=== PATIENT | female | born 1990 | race Two or more races ===

== ENCOUNTER 2018-12-29 13:17 | Emergency (ER) | payer MEDICARE, OTHER ==
[2018-12-29 14:16] VITALS: BP 134/97
[2018-12-29] MEDS ORDERED: CLON-333 PO (14:20)
[2018-12-29] MEDS ORDERED: DIPHTH/TETANUS/ACEL. PERTUSSIS IM ONLY ONE (14:30)
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
== END 2018-12-29 15:45 | disposition home or self-care (01) ==
LOC: ER 13:40
DX: S06.0X0A Concussion without loss of consciousness, initial encounter (principal); S10.0XXA Contusion of throat, initial encounter; S01.81XA Laceration without foreign body of other part of head, initial encounter; S00.83XA Contusion of other part of head, initial encounter; Y04.2XXA Assault by strike against or bumped into by another person, initial encounter
CPT/HCPCS: 70450; 81025; 90471; 90715; 99284

== ENCOUNTER 2019-01-03 11:42 | Emergency (ER) | payer MEDICARE, OTHER ==
[~2019-01-03 11:42] MED LIST: CLON-333 PO
[2019-01-03 11:45] VITALS: BP 139/101
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
[2019-01-03] MEDS ORDERED: LORazepam 1 MG TAB PO ONE (12:10)
[2019-01-03 12:35] LABS: PLATELET COUNT, AUTOMATED 421 K/uL (150-450)
[2019-01-03] MEDS ORDERED: implanon (19:35)
[2019-01-03] MEDS ORDERED: ETON68IM SQ (19:35)
== END 2019-01-03 14:09 ==
LOC: ER 12:00
DX: F32.9 Major depressive disorder, single episode, unspecified (principal); Z86.718 Personal history of other venous thrombosis and embolism; Z86.711 Personal history of pulmonary embolism
CPT/HCPCS: 80305; 81001; 81025; 83735; 84443; 85025; 99284; A9270; G0480; 80320; 80329; 82040; 82247; 82310; 82374; 82435; 82565; 82947; 84075; 84132; 84155; 84295; 84450; 84460; 84520

== ENCOUNTER 2019-01-03 13:35 | Inpatient (IN) | payer MEDICARE, OTHER ==
[~2019-01-03] VITALS: Ht 160 cm; Wt 96.2 kg
[2019-01-03 14:15] VITALS: BP 140/80
[2019-01-03] MEDS ORDERED: ACETAMINOPHEN 325 MG TAB PO PRN (14:30)
[2019-01-03] MEDS ORDERED: WATER FOR INJECTION 10 ML VIAL IM ONLY PRN (14:30)
[2019-01-03] MEDS ORDERED: OLANZapine 10 MG VIAL IM ONLY PRN (14:30)
[2019-01-03] MEDS ORDERED: LORazepam 2 MG/ML VIAL IM PRN (14:30)
[2019-01-03] MEDS ORDERED: MAG HYD/AL HYD/SIMETH 30ML UDC PO PRN (14:30)
[2019-01-03] MEDS ORDERED: diphenhydrAMINE 50 MG/ML VIAL IM PRN (14:30)
[2019-01-03] MEDS ORDERED: OLANZapine 5 MG TAB PO PRN (14:30)
[2019-01-03] MEDS ORDERED: LORazepam 1 MG TAB PO PRN (14:35)
[2019-01-03] MEDS ORDERED: NICOTINE CARTRIDGE 1 EA PO PRN (14:35)
[2019-01-03] MEDS ORDERED: NICOTINE INH SYSTEM 10 MG/INH INH PRN (14:35)
[2019-01-03] MEDS ORDERED: diphenhydrAMINE 25 MG CAP PO PRN (18:35)
--- NOTE | 2019-01-03 18:57 | RADIOLOGY IMAGING REPORT ---
FACILITY: [facility] PATIENT NAME: Leticia Hale : 1990 MR: [id number] V: [id number] EXAM DATE: ORDERING PHYSICIAN: DEON CARLTON TECHNOLOGIST: [place] [facility] [place] Patient: Leticia Hale : 1990 Visit/Account:[id number] Date of Sevice: 01/03/2019 EXAMINATION: Right wrist 3 views HISTORY: Injury. COMPARISON: None. FINDINGS: No evidence of acute fracture or dislocation about the right wrist. Normal alignment. Joint spaces are preserved. Soft tissues are unremarkable. IMPRESSION: Negative right wrist. Report Dictated By: Surya Joy MD at 01/03/2019 6:48 PM Report E-Signed By: Surya Joy MD at 01/03/2019 6:53 PM WSN:[id number]
[2019-01-03] MEDS ORDERED: ETON68IM SQ (19:35)
[2019-01-03] MEDS ORDERED: implanon (19:35)
[2019-01-04 02:23] VITALS: BP 131/88
[2019-01-04] MEDS ORDERED: LORazepam 1 MG TAB PO ONE ×2 (02:50→20:45)
[2019-01-04] MEDS: MULTIVITAMINS PO SCH ×2 (08:39→09:00)
[2019-01-04] MEDS ORDERED: DIAZEPAM 10 MG TAB PO ONE (13:10)
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
[2019-01-04] MEDS: PANTOPRAZOLE SOD 40 MG TABEC PO SCH (17:57)
[2019-01-04] MEDS ORDERED: ARIPiprazole 2 MG TAB PO SCH (21:00)
[2019-01-04 22:39] VITALS: BP 131/88
[2019-01-05 05:01] VITALS: BP 130/86
[2019-01-05] MEDS: MULTIVITAMINS PO SCH (08:02)
[2019-01-05] MEDS: PANTOPRAZOLE SOD 40 MG TABEC PO SCH (08:02)
[2019-01-05 10:02] VITALS: BP 150/107
--- NOTE | 2019-01-05 10:19 | BHS Progress Note ---
S - Subjective Progress Notes Subjective "I'm super pissed off about John being locked up and being stuck in [place]. I hope everyone dies off on the face of the planet. Can I tell them I just lied? The longer I'm in [place] the more of a problem I'm going to be here. I should have gone to [place] to get the meds I need. When I say I need them, I mean I need them." States didn't sleep well, "I got a room mate." Anger "15.87 out of a 10" Depression "I still want to ." Anxiety "I'm worried I'm doing to be stuck here." Suicidal ideation, "I mean I don't have a plan, It's easier to than to get the meds I need." Suicidal Ideation: Ongoing Homicidal Ideation: None [facility] - Objective Physical Exam Vital Signs Allergies Coded Allergies NSAIDS (Non-Steroidal Anti-Inflamma (Verified Allergy, Unknown, 01/03/19) divalproex sodium (Verified Allergy, Unknown, 01/03/19) galantamine (Verified Allergy, Unknown, 01/03/19) tramadol (Verified Allergy, Unknown, 01/03/19) Medications (Trade) Dose Ordered Sig/Alfredo Route PRN Reason Start Time Stop Time Status Last Admin Dose Admin Aripiprazole (Abilify 2 Mg Tab (Or Equiv)) 2 mg QHS PO 01/04/19 21:00 02/03/19 20:59 01/04/19 21:08 Diazepam (Valium(*) 10 Mg Tab (Or Equiv)) 10 mg ONCE ONCE PO 01/04/19 13:10 01/04/19 13:15 DC 01/04/19 13:10 Lorazepam (Ativan(*) 1 Mg Tab (Or Equiv)) 1 mg ONCE ONCE PO 01/04/19 20:45 01/04/19 21:25 DC 01/04/19 21:33 Miscellaneous Information (Nicotrol Cartridge) 1 each PRN PRN PO NICOTINE REPLACEMENT 01/03/19 14:35 02/02/19 14:34 01/04/19 19:55 Multivitamins (Thera-M Enhanced Tab (Or Equiv)) 1 each QDAY PO 01/04/19 09:00 02/03/19 08:59 01/05/19 08:02 Nicotine (Nicotrol Inhaler 10 Mg/Inh (Or Equiv)) 10 mg Q2H PRN INH NICOTINE REPLACEMENT 01/03/19 14:35 02/02/19 14:34 01/04/19 19:55 Pantoprazole Sodium (Protonix (*) (Or Equiv)) 40 mg QDAY PO 01/04/19 17:45 02/03/19 17:44 01/05/19 08:02 Deferred Current Medications Medications (Trade) Dose Ordered Sig/Alfredo Route PRN Reason Start Time Stop Time Status Last Admin Dose Admin Acetaminophen (Tylenol(*)325 Mg Tab (Or Equiv)) 650 mg Q4H PRN PO HEADACHE 01/03/19 14:30 02/02/19 14:29 Al Hydrox/Mg Hydrox/Simethicone (Maalox(*) 30 ml Udcup (Or Equiv)) 30 ml Q4H PRN PO DYSPEPSIA 01/03/19 14:30 02/02/19 14:29 Multivitamins (Thera-M Enhanced Tab (Or Equiv)) 1 each QDAY PO 01/04/19 09:00 02/03/19 08:59 01/05/19 08:02 Olanzapine (zyPREXA(*) (OR EQUIV)) 10 mg Q6H PRN IM ONLY SEVERE AGITATION 01/03/19 14:30 02/02/19 14:29 Diphenhydramine HCl (Benadryl(*) 50 Mg/ml Vial (Or Equiv)) 50 mg Q6H PRN IM SEVERE AGITATION 01/03/19 14:30 02/02/19 14:29 Olanzapine (zyPREXA (OR EQUIV)) 10 mg Q6H PRN PO SEVERE AGITATION 01/03/19 14:30 02/02/19 14:29 Sterile Water (Sterile Water Injection(*) 10 ml Vial) 2.1 ml Q6H PRN IM ONLY PRN 01/03/19 14:30 02/02/19 14:29 Lorazepam (Ativan(*) 2 Mg/ ml Vial (Or Equiv)) 2 mg Q6H PRN IM SEVERE AGITATION 01/03/19 14:30 01/17/19 14:29 Lorazepam (Ativan(*) 1 Mg Tab (Or Equiv)) 2 mg Q6H PRN PO SEVERE AGITATION 01/03/19 14:35 01/17/19 14:34 Nicotine (Nicotrol Inhaler 10 Mg/Inh (Or Equiv)) 10 mg Q2H PRN INH NICOTINE REPLACEMENT 01/03/19 14:35 02/02/19 14:34 01/04/19 19:55 Miscellaneous Information (Nicotrol Cartridge) 1 each PRN PRN PO NICOTINE REPLACEMENT 01/03/19 14:35 02/02/19 14:34 01/04/19 19:55 Diphenhydramine HCl (Benadryl(*) 25 Mg Cap (Or Equiv)) 25 mg QID PRN PO ANXIETY/INSOMNIA 01/03/19 18:35 02/02/19 18:34 Lorazepam (Ativan(*) 1 Mg Tab (Or Equiv)) 1 mg ONCE ONCE PO 01/04/19 02:50 01/04/19 02:55 DC 01/04/19 02:59 Aripiprazole (Abilify 2 Mg Tab (Or Equiv)) 2 mg QHS PO 01/04/19 21:00 02/03/19 20:59 01/04/19 21:08 Diazepam (Valium(*) 10 Mg Tab (Or Equiv)) 10 mg ONCE ONCE PO 01/04/19 13:10 01/04/19 13:15 DC 01/04/19 13:10 Pantoprazole Sodium (Protonix (*) (Or Equiv)) 40 mg QDAY PO 01/04/19 17:45 02/03/19 17:44 01/05/19 08:02 Lorazepam (Ativan(*) 1 Mg Tab (Or Equiv)) 1 mg ONCE ONCE PO 01/04/19 20:45 01/04/19 21:25 DC 01/04/19 21:33 Muscle Strength and Tone: WNL Gait and Station: Steady [facility] Medications Reviewed: Side Effects, Benefits of Medication, Risks Allergies Reviewed: Yes Mental Status Exam General Appearance: Casual, Tearful (tearful at times, angry and irritable throughout interview) Speech: Clear, Spontaneous, Normal Volume, Rambling Mood: Other (labile) Affect: Tearful, Anxious, Agitated Thought Process: Organized, Flight of Ideas (some flight of ideas) Thought Content: Suicidal Ideation; No Homicidal Ideation, No Auditory Halllucinations, No Visual Hallucinations, No Thought Broadcasting, No Ideas of Reference, No Obsessions, No Compulsions Sensorium: Clear (Labile) Cognition: Alert & Oriented-Person, Alert & Oriented-Place, Alert & Oriented- Time, Mhhri-Dauzwikz-Bswbursgn Memory: Immediate, Recent, Remote Intelligence: Average Insight Judgment: Poor Imaging Medications (Trade) Dose Ordered Sig/Alfredo Route PRN Reason Start Time Stop Time Status Last Admin Dose Admin Aripiprazole (Abilify 2 Mg Tab (Or Equiv)) 2 mg QHS PO 01/04/19 21:00 02/03/19 20:59 01/04/19 21:08 Diazepam (Valium(*) 10 Mg Tab (Or Equiv)) 10 mg ONCE ONCE PO 01/04/19 13:10 01/04/19 13:15 DC 01/04/19 13:10 Lorazepam (Ativan(*) 1 Mg Tab (Or Equiv)) 1 mg ONCE ONCE PO 01/04/19 20:45 01/04/19 21:25 DC 01/04/19 21:33 Miscellaneous Information (Nicotrol Cartridge) 1 each PRN PRN PO NICOTINE REPLACEMENT 01/03/19 14:35 02/02/19 14:34 01/04/19 19:55 Multivitamins (Thera-M Enhanced Tab (Or Equiv)) 1 each QDAY PO 01/04/19 09:00 02/03/19 08:59 01/05/19 08:02 Nicotine (Nicotrol Inhaler 10 Mg/Inh (Or Equiv)) 10 mg Q2H PRN INH NICOTINE REPLACEMENT 01/03/19 14:35 02/02/19 14:34 01/04/19 19:55 Pantoprazole Sodium (Protonix (*) (Or Equiv)) 40 mg QDAY PO 01/04/19 17:45 02/03/19 17:44 01/05/19 08:[address] [facility] Assessment and Plan [id number] Encounter Date: Jan 05, 2019 [id number] Encounter Time: 10:[address] [facility] Plan: Admit to Unit, Necessary Precautions, Individual/Group Therapy, Admin/Titrate Meds, Educate Patient Multpiple Antipsychotics Used: No Problems: (1) Unspecified mood [affective] disorder (2) Borderline personality disorder Condition Maintain precautions Encourage mood regulation tasks Increase Abilify to 5mg po every, Lorazepam 1mg po bid Treatment team 01/05/19 STEFANIE MORTON NP Jan 05, 2019 10:19
[2019-01-05] MEDS: LORazepam 1 MG TAB PO SCH ×2 (10:52→17:15)
[2019-01-05] MEDS: ARIPiprazole 10 MG TAB PO ONE ×2 (20:55→21:27)
--- NOTE | 2019-01-05 21:10 | NUR ---
pt was given her 2100 medication, Abilify 5mg. Pt refused med. States it will keep her awake since she doesnt have anything else to help her sleep.
[2019-01-06] MEDS: PANTOPRAZOLE SOD 40 MG TABEC PO SCH (08:24)
[2019-01-06] MEDS: LORazepam 1 MG TAB PO SCH ×3 (08:24→20:23)
[2019-01-06] MEDS: MULTIVITAMINS PO SCH (08:25)
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
[2019-01-06] MEDS ORDERED: LORazepam 1 MG TAB PO ONE (17:00)
[2019-01-06] MEDS ORDERED: RIVAROXABAN 10 MG TAB PO SCH (17:30)
[2019-01-06] MEDS ORDERED: LORazepam 1 MG TAB ONE (20:13)
--- NOTE | 2019-01-06 20:39 | NUR ---
Pt dropped previous Ativan on the floor. Did override to replace
[2019-01-06] MEDS ORDERED: ARIPiprazole 10 MG TAB PO SCH (21:00)
[2019-01-06 21:27] VITALS: BP 112/72
[2019-01-07] MEDS: PANTOPRAZOLE SOD 40 MG TABEC PO SCH (08:24)
[2019-01-07] MEDS: MULTIVITAMINS PO SCH (08:24)
[2019-01-07] MEDS: LORazepam 1 MG TAB PO SCH (08:24)
[2019-01-07] MEDS ORDERED: CLON0.5T66 PO ×2 (14:03→14:08)
[2019-01-07] MEDS ORDERED: RIVA10TA PO (14:05)
[2019-01-07] MEDS ORDERED: ABILIF5PT PO (14:09)
[2019-01-07] MEDS ORDERED: SERT-1 PO (14:10)
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
== END 2019-01-07 14:24 | disposition home or self-care (01) | DRG 883 ==
LOC: BHS 13:35
PROVIDERS: ADMIT Psychiatry & Neurology Psychiatry; ATTEND Psychiatry & Neurology Psychiatry
DX: F60.3 Borderline personality disorder (principal); R45.851 Suicidal ideations; F13.20 Sedative, hypnotic or anxiolytic dependence, uncomplicated; D68.9 Coagulation defect, unspecified; E66.9 Obesity, unspecified; F17.210 Nicotine dependence, cigarettes, uncomplicated; F43.22 Adjustment disorder with anxiety; Z62.810 Personal history of physical and sexual abuse in childhood; Z68.37 Body mass index [BMI] 37.0-37.9, adult; Z86.718 Personal history of other venous thrombosis and embolism; Z86.711 Personal history of pulmonary embolism; Z91.410 Personal history of adult physical and sexual abuse; Z63.0 Problems in relationship with spouse or partner; Z91.5 Personal history of self-harm; Z59.0 Homelessness; Z88.8 Allergy status to other drugs, medicaments and biological substances; Z88.6 Allergy status to analgesic agent